=== PATIENT | female | born 1980 | race African-American/Black ===

== ENCOUNTER 2021-04-23 11:02 | Emergency (ER) | payer OTHER ==
[~2021-04-23] VITALS: Ht 162.6 cm; Wt 104.5 kg
[~2021-04-23 11:02] MED LIST: ASPI-1450 PO; METO25 PO; OLAN5TAB94 PO
[2021-04-23] MEDS ORDERED: ACETAMINOPHEN 500 MG TABLET PO ONE (12:00)
[2021-04-23 12:05] VITALS: BP 145/78
[2021-04-23] MEDS ORDERED: BACITRACIN 0.9 GM PACKET OINTMENT TP ONE (12:30)
== END 2021-04-23 12:41 | disposition home or self-care (01) ==
LOC: EMS 11:04
DX: S60.454A Superficial foreign body of right ring finger, initial encounter (principal); W49.04XA Ring or other jewelry causing external constriction, initial encounter; Y93.89 Activity, other specified; Y92.89 Other specified places as the place of occurrence of the external cause; Y99.8 Other external cause status; Z79.899 Other long term (current) drug therapy
CPT/HCPCS: 99284; Z7502; Z7610

== ENCOUNTER 2024-05-21 08:12 | Emergency (ER) | payer OTHER ==
[~2024-05-21] VITALS: Ht 162.6 cm; Wt 105.0 kg
[2024-05-21] MEDS ORDERED: ATEN100T92 PO (08:18)
[2024-05-21] MEDS ORDERED: ATOR10TA69 PO (08:18)
[2024-05-21] MEDS ORDERED: ALBU18HF12 IH (08:18)
[2024-05-21] MEDS ORDERED: CARV12.530 PO (08:18)
[2024-05-21] MEDS ORDERED: BECL10.62 PO (08:18)
[2024-05-21] MEDS ORDERED: LISI40TA16 PO (08:18)
[2024-05-21 08:19] VITALS: BP 144/96; PULSE 68; RESP 16; TEMP 97.6; O2SAT 97
[2024-05-21 09:05] LABS: BASOPHILS % (AUTO) 1.2 % (0.0-2.0); HEMOGLOBIN 10.3 g/dL (12.0-16.0); LYMPHOCYTES # (AUTO) 3.3 K/uL (1.0-4.8); LYMPHOCYTES % (AUTO) 42.8 % (22.0-44.0); MEAN CORPUSCULAR HEMOGLOBIN 22.9 pg (26.0-34.0); MEAN CORPUSCULAR HGB CONC 31.1 G/dL (31.0-37.0); MEAN CORPUSCULAR VOLUME 74 fL (80-100); MONOCYTES # (AUTO) 0.5 K/uL (0.1-1.0); MONOCYTES % (AUTO) 6.4 % (2.0-9.0); NEUTROPHILS # (AUTO) 3.7 K/uL (1.8-7.7); NEUTROPHILS % (AUTO) 48.6 % (40.0-70.0); PLATELET COUNT (AUTO) 436 K/uL (150-450); RED BLOOD CELL COUNT(AUTO) 4.49 MIL/uL (4.00-5.20); RED CELL DISTRIBUTION WIDTH 18.9 % (11.5-14.5); WHITE BLOOD COUNT (AUTO) 7.7 K/uL (4.5-11.0)
[2024-05-21 09:09] LABS: ANION GAP 13 mmol/L (8-16); CALCIUM, TOTAL 9.3 mg/dL (8.8-10.5); CARBON DIOXIDE 22 mmol/L (22-29); CHLORIDE 106 mmol/L (98-107); CREATININE 0.81 mg/dL (0.60-1.30); GLOMERULAR FILTR. RATE CALC > 60 mL/min (>60); GLUCOSE,RANDOM 96 mg/dL (70-110); POTASSIUM 3.4 mmol/L (3.5-5.1); SODIUM SERUM 141 mmol/L (136-145); UREA NITROGEN, BLOOD 12 mg/dL (7-18)
[2024-05-21 09:15] LABS: ALANINE AMINOTRANSFERASE 26 U/L (12-78); ALBUMIN 3.4 g/dL (3.4-5.0); ALKALINE PHOSPHATASE 73 U/L (46-116); ASPARTATE AMINOTRANSFERASE 21 U/L (15-37); BILIRUBIN,TOTAL 0.3 mg/dL (0.1-1.0); LIPASE 30 U/L (16-77); TOTAL PROTEIN, SERUM 8.6 g/dL (6.4-8.2)
[2024-05-21 09:33] LABS: RBC MORPHOLOGY COMMENT ABNORMAL RBC MORPH
== END 2024-05-21 10:04 | disposition home or self-care (01) ==
LOC: EMS 08:12
DX: R63.0 Anorexia (principal); I10 Essential (primary) hypertension; E78.00 Pure hypercholesterolemia, unspecified; F17.210 Nicotine dependence, cigarettes, uncomplicated; F20.9 Schizophrenia, unspecified; Z79.51 Long term (current) use of inhaled steroids; Z98.51 Tubal ligation status; Z91.199 Patient's noncompliance with other medical treatment and regimen due to unspecified reason; Z79.899 Other long term (current) drug therapy
CPT/HCPCS: 80048; 80076; 83690; 84703; 85025; 99283